=== PATIENT | female | born 1960 | race Caucasian/White ===

== ENCOUNTER 2024-06-05 13:16 | Emergency (ER) | payer MEDICARE, SELFPAY ==
[2024-06-05 13:17] VITALS: BMI 35.4
[2024-06-05 13:53] VITALS: BP 124/79; PULSE 68; RESP 16; TEMP 36.6; O2SAT 95
--- NOTE | 2024-06-05 14:10 | EDNOTE_ITS ---
<Statement entered by Denita Chapin MD - 06/07/24 07:12> As co-signing physician, I was present and available for consult prn. I concur with the plan and care as documented by the midlevel provider. ED Skin Abcess FB-RME/HPI General Chief complaint: Skin/Abscess/Foreign Body Stated complaint: SORE RIGHT ANKLE x 1 MONTH Time Seen by Provider: 06/05/24 13:53 Source: patient Arrival date/time: 06/05/24 13:16 This is a 64-year-old female who presents to the emergency department with complaints of a healing insect/spider bite to her right lower leg. She does report she has had the wound for 1 month was previously treated with cephalexin which she just completed her course last dose yesterday. She has noticed that the wound is taking longer than expected to heal prompting her ED visit today. Also states that her PCP gave her a dose of doxycycline and mupirocin however she has not started that course. Denies fever, chills no difficulty walking or pain. Mode of arrival: ambulatory Limitations: no limitations Related Data Home Medications ?Medication ?Instructions ?Recorded ?Confirmed Albuterol Sulfate/Ipratropium * 2 puff inhalation Q4HR PRN 08/27/16 11/05/23 (COMBIVENT *) Wheezing #0 inhalations hydrocodone 7.5 mg-acetaminophen 1 tab PO BID PRN Pain 01/25/20 11/05/23 750 mg tablet atorvastatin 40 mg tablet 40 mg PO QPM 11/05/23 cetirizine 10 mg capsule (Zyrtec) 10 mg PO QDAY 11/05/23 diazepam 2 mg tablet (Valium) 2 mg PO BID PRN Anxiety 11/05/23 11/05/23 ergocalciferol (vitamin D2) 1,250 1,250 mcg PO QWEEK 0 11/05/23 11/05/23 mcg (50,000 unit) capsule (Vitamin D2) tiotropium bromide 2.5 1 inh inhalation DAILY 11/0411/05/23 mcg/actuation mist for inhalation (Spiriva Respimat) Allergies Allergy/AdvReac Type Severity Reaction Status Date / Time aspirin Allergy Severe FACIAL Verified 06/05/24 13:21 SWELLING latex Allergy Severe Hives Verified 06/05/24 13:21 Sulfa (Sulfonamide Allergy Severe Hives Verified 06/05/24 13:21 Antibiotics) Review of Systems Review of Systems Systems Reviewed: All systems reviewed, normal except as documented Narrative Review of Systems: Gen: No fever, no chills, no weight loss EYES: No discharge, no visual changes, no pain HEENT: No ear pain, no congestion, no sore throat PULM: No shortness of breath, no cough, no congestion CV: No chest pain, no dyspnea on exertion, no palpitations GI: No nausea, no vomiting, no diarrhea, no pain, no constipation : No frequency, no urgency,? no dysuria Musc/skel: No joint pain, no back pain Skin: Positive insect bite right lower leg ED Exam General Limitations: Present no limitations General appearance: Present alert and in no apparent distress Head Head exam: Present atraumatic Eye Eye exam: Present normal appearance, PERRL and EOMI ENT ENT exam: Present normal exam, normal oropharynx and mucous membranes moist Neck Neck exam: Present normal inspection, full ROM and trachea midline Chest Chest inspection: Present normal inspection and symmetric chest wall rise Respiratory Respiratory exam: Present normal lung sounds bilaterally Cardiovascular Cardiovascular exam: Present regular rate, normal rhythm and normal heart sounds Abdominal Exam Abdominal exam: Present soft and normal bowel sounds Extremities Exam Extremities exam: Present normal inspection and full ROM Expanded Lower Extremity Exam Hip/Pelvis exam: Present normal inspection Upper leg exam: Present normal inspection Leg image: 2 1. + Small 1 cm lesion open sore noted to right lateral upper malleolus area no abscess formation wound appears healing no severe erythemic or drainage. Back Exam Back exam: Present normal inspection and full ROM Neurological Exam Neurological exam: Present alert, oriented X3 and CN II-XII intact Psychiatric Psychiatric exam: Present normal affect and normal mood Skin Skin exam: Present warm, dry, intact and normal color Course Quality Measures none Orders Category Date Time Status Wound Care NOW Care 06/05/24 14:10 Active Vital Signs Vital signs: Vital Signs Temperature 97.8 F 06/05/24 13:53 Pulse Rate 68 06/05/24 13:53 Respiratory Rate 16 06/05/24 13:53 Blood Pressure 124/79 06/05/24 13:53 Pulse Oximetry (%) 95 06/05/24 13:53 Oxygen Delivery Method Room Air 06/05/24 13:53 Skin / Abscess / Foreign Body MDM Narrative MDM Narrative:: Patient evaluated for a healing insect bite/cellulitis noted to her right lower leg. Patient has completed his Keflex outpatient currently on Doxy and mupirocin. Patient's wound does not appear to to have severe infection, no abscess formation, wound appears to be healing granulous tissue noted. Advised to complete her Doxy and mupirocin as directed follow-up with her PCP strict ER precautions to return. Patient data External records reviewed:: [facility] previous records Clinical information provided by:: patient Social determinants that could affect healthcare access:: none Patient has the following chronic illnesses:: None How is presenting disease/condition affected by chronic disease/condition?: no chronic disease Evaluation data The following diagnostics were reviewed and interpreted by me:: other (specify) Lab and/or radiology exams considered but not ordered:: No Interpretation Summary: No Medications / Prescriptions Medications or Prescriptions considered but not ordered:: No Medication administrations:: No Consultations Consultation(s) initiated? (list below): No Diagnosis Skin/Abscess Differential Diagnosis: abscess of skin or subcutaneous tissue, cellulitis, eczema and insect bites Most likely diagnosis given after review of the tests above:: Healing cellulitis, insect bite. Admission Indicated Admission indicated?: not indicated Admission Request Was there a request for admission?: No Disposition Plan Disposition Plan: Discharge Discharge Attestation Discharge Attestation: The patient and all family members were given an opportunity to ask questions and understood the discharge instructions. Discharge instructions specifically effects, indications for sooner follow up or return to the emergency department, and the expected course of current diagnosis. Patient condition: Stable Discharge Plan Plan Patient Disposition: HOME (Self Care) Patient condition on transfer: Stable Prescriptions/Referrals Prescriptions/Med Rec: No Action Albuterol Sulfate/Ipratropium * (COMBIVENT *) 4 GM AER.W.ADAP 2 puff Inhalation Q4HR PRN (Reason: Wheezing) Qty: 0 hydrocodone-acetaminophen 7.5-750 mg Tablet 1 tab PO BID PRN (Reason: Pain) atorvastatin 40 mg Tablet 40 mg PO QPM diazepam [Valium] 2 mg Tablet 2 mg PO BID PRN (Reason: Anxiety) ergocalciferol (vitamin D2) [Vitamin D2] 1,250 mcg (50,000 unit) Capsule 1,250 mcg PO QWEEK Zyrtec 10 mg Capsule 10 mg PO QDAY Spiriva Respimat 2.5 mcg/actuation mist 1 inh INHALATION DAILY Patient Comments: INHALE TWO PUFFS BY MOUTH EVERY DAY Problem List Clinical Impression: Nonvenomous spider bite of right lower leg Patient/Caregiver Discharge Instructions Discharge Activity: activity as tolerated Education Materials: ED Insect Sting/Bite, Infected Additional Instructions: Your wound appears to be healing some wounds take longer than others to heal. I advised for you to continue to take and complete your doxycycline. Use the mupirocin for 7 days twice a day until the course is completed Keep area clean and dry. Follow-up with your doctor in 1 week for wound recheck. Return to the emergency department if there is any worsening symptoms or the area of redness is larger as discussed. Print Language: Senegalese Stand Alone Forms: Reshma Award Info., Patient Portal Info Letter PA/TELEGRAPH REPEATER TECHNICIAN Supervising Physician PA/EKTA Supervising Physician: Dr. Dominguez
== END 2024-06-05 14:37 | disposition home or self-care (01) ==
PROVIDERS: Emergency Provider Emergency Medicine
DX: T63.301A Toxic effect of unspecified spider venom, accidental (unintentional), initial encounter (principal)
CPT/HCPCS: 99281

== ENCOUNTER 2024-06-12 20:31 | Emergency (ER) | payer MEDICARE, SELFPAY ==
[2024-06-12 20:32] VITALS: BMI 34.5
[2024-06-12 20:59] VITALS: BP 121/73; PULSE 70; RESP 18; TEMP 36.7; O2SAT 95
--- NOTE | 2024-06-12 21:09 | PD.EDEYE ---
ED Eye Problem RME/HPI General Chief complaint: Eye Problems Stated complaint: LEFT EYE REDNESS Time Seen by Provider: 06/12/24 20:41 Source: patient Arrival date/time: 06/12/24 20:31 64-year-old female presents emergency department complaining of left eye redness, itching, and foreign body sensation that started yesterday. Patient reports bought [id number] eyedrops with no longer having sensation of foreign body but reports is still itchy and red. Patient reports this morning woke up and had yellow crusting and lower eyelid. Patient denies any vision changes. Mode of arrival: ambulatory Limitations: no limitations Related Data Home Medications ?Medication ?Instructions ?Recorded ?Confirmed Albuterol Sulfate/Ipratropium * 2 puff inhalation Q4HR PRN 08/27/16 11/05/23 (COMBIVENT *) Wheezing #0 inhalations hydrocodone 7.5 mg-acetaminophen 1 tab PO BID PRN Pain 01/25/20 11/05/23 750 mg tablet atorvastatin 40 mg tablet 40 mg PO QPM 11/05/23 11/05/23 cetirizine 10 mg capsule (Zyrtec) 10 mg PO QDAY 11/05/23 11/05/23 diazepam 2 mg tablet (Valium) 2 mg PO BID PRN Anxiety 11/05/23 11/05/23 ergocalciferol (vitamin D2) 1,250 1,250 mcg PO QWEEK 11/05/23 11/05/23 mcg (50,000 unit) capsule (Vitamin D2) tiotropium bromide 2.5 1 inh inhalation DAILY 11/05/23 11/05/23 mcg/actuation mist for inhalation (Spiriva Respimat) Previous Rx's ?Medication ?Instructions ?Recorded erythromycin 5 mg/gram (0.5 %) eye 0.5 inch ophthalmic (eye) QID 5 06/12/24 ointment days #3.5 grams Allergies Allergy/AdvReac Type Severity Reaction Status Date / Time aspirin Allergy Severe FACIAL Verified 06/12/24 20:32 SWELLING latex Allergy Severe Hives Verified 06/12/24 20:32 Sulfa (Sulfonamide Allergy Severe Hives Verified 06/12/24 20:32 Antibiotics) Review of Systems Review of Systems Systems Reviewed: All systems reviewed, normal except as documented Constitutional Constitutional: Reports system reviewed and no additional complaints, except as documented, Denies body ache(s), Denies chills and Denies fever(s) Eyes Eyes: Reports system reviewed and no additional complaints, except as documented, Denies change in vision, Reports eye discharge, Reports irritation and Reports itchy eyes ENT Ears, Nose, Mouth, and Throat: Reports system reviewed and no additional complaints, except as documented, Denies disequilibrium, Denies dizziness, Denies sore throat and Denies vertigo Cardiovascular Cardiovascular: Reports system reviewed and no additional complaints, except as documented, Denies chest pain and Denies dyspnea Respiratory Respiratory: Reports system reviewed and no additional complaints, except as documented, Denies chest congestion, Denies cough and Denies dyspnea Gastrointestinal Gastrointestinal: Reports system reviewed and no additional complaints, except as documented, Denies abdominal pain, Denies nausea and Denies vomiting Musculoskeletal Musculoskeletal: Reports system reviewed and no additional complaints, except as documented, Denies abnormal gait and Denies arthralgias Integumentary/Breasts Skin/Breast: Reports system reviewed and no additional complaints, except as documented, Denies erythema, Denies rash and Denies wounds Neurologic Neurologic: Reports system reviewed and no additional complaints, except as documented, Denies abnormal gait, Denies disequilibrium, Denies dizziness and Denies vertigo Allergic/Immunologic Allergic/Immunologic: Reports itchy eyes Past Medical History Past Medical History NEUROLOGIC: Negative Neurological Disorders or Seizures CARDIAC: Positive Cardiac Disorders and Hypercholesterolemia; Negative Congestive Heart Failure RESPIRATORY: Positive Chronic Obstructive Pulmonary Disease (COPD), Asthma and Sleep Apnea GASTROINTESTINAL: Positive Gastrointestinal Disorders, Gastroesophageal Reflux Disease and Obesity; Negative Hepatitis GENITOURINARY: Positive Genitourinary Disorders (RIGHT KIIDNEY HAS CYST); Negative Renal Disease REPRODUCTIVE: Positive Previous Pregnancies (X5) MUSCULOSKELETAL: Positive Musculoskeletal Disorders, Arthritis and Carpal Tunnel Syndrome (RIHGT WRIST AND ELBOW) ENT: Positive Cataracts ENDOCRINE: Negative Endocrine Disorders, Diabetes Mellitus Type 1 or Diabetes Mellitus Type 2 HEMATOLOGIC: Negative Blood Disorders PSYCHO/SOCIAL: Positive Depression and Anxiety OTHER HISTORY: Positive Chicken Pox, Measles and Mumps; Negative Hospitalization, Autoimmune Disease, Shingles, Falls, Blood Transfusions, Blood Transfusion Reaction, Anesthesia Reactions, MRSA or Cancer Family History FAMILY HISTORY: Positive Family Cancer (MOTHER. SISTER); Negative Family Psychiatric Problems, Family Respiratory Disorders, Family Cardiac Disorders, Family Gastrointestinal Problems, Family Surgery or Family Anesthesia Reaction Surgical History SURGICAL: Positive Ear Surgery (LEFT EAR X2), Tonsillectomy, Adenoidectomy and Open Reduction Internal Fixation (bilateral wrists); Negative Cardiac Surgery Social History SMOKING STATUS: Current every day smoker ED Exam General Limitations: Present no limitations General appearance: Present alert and in no apparent distress Head Head exam: Present atraumatic Eye Eye exam: Present normal appearance, PERRL and EOMI Expanded Eye Exam Eyelids: left: swelling eyelids Pupils: Bilateral: regular, round and reactive Sclera/Conjunctival: left: injection and exudate (Yellow discharge) ENT ENT exam: Present normal exam, normal oropharynx and mucous membranes moist Neck Neck exam: Present normal inspection, full ROM and trachea midline Chest Chest inspection: Present normal inspection and symmetric chest wall rise Respiratory Respiratory exam: Present normal lung sounds bilaterally Cardiovascular Cardiovascular exam: Present regular rate, normal rhythm and normal heart sounds Abdominal Exam Abdominal exam: Present soft and normal bowel sounds Extremities Exam Extremities exam: Present normal inspection and full ROM Back Exam Back exam: Present normal inspection and full ROM Neurological Exam Neurological exam: Present alert, oriented X3 and CN II-XII intact Psychiatric Psychiatric exam: Present normal affect and normal mood Skin Skin exam: Present warm, dry, intact and normal color Course Quality Measures none Orders Category Date Time Status Freeman Lamp to Bedside X1 Care 06/12/24 21:10 Completed Erythromycin Op Oint 0.5% Med 06/12/24 21:57 Discontinued 1 gm LEFT EYE X1 ONE Fluorescein Sodium [[id number]] Med 06/12/24 21:10 Discontinued 1 mg RIGHT EYE X1 ONE TETRACAINE Op Anne Marie 0.5% [Pontocaine Op Anne Marie 0.5%] Med 06/12/24 21:10 Discontinued 1 drop LEFT EYE X1 ONE Vital Signs Vital signs: Vital Signs Temperature 98.0 F 06/12/24 20:59 Pulse Rate 70 06/12/24 20:59 Respiratory Rate 18 06/12/24 20:59 Blood Pressure 121/73 06/12/24 20:59 Pulse Oximetry (%) 95 06/12/24 20:59 Oxygen Delivery Method Room Air 06/12/24 20:59 Procedures -ED Freeman Lamp Exam Left eye: Flourescein uptake:: Yes Freeman Lamp Findings: Normal Eye MDM Narrative MDM Narrative:: 64-year-old female presents emergency department complaining of left eye redness, itching, and foreign body sensation that started yesterday. Patient reports bought [id number] eyedrops with no longer having sensation of foreign body but reports is still itchy and red. Patient reports this morning woke up and had yellow crusting and lower eyelid. Patient denies any vision changes. Wood lamp exam no obvious foreign body or corneal abrasion. Left eye sclera injection with yellow drainage observed corner of eyelids. Patient denies any vision changes. Patient likely has bacterial infection due to drainage and possibly from rubbing eye as well. Right eye is within normal limits, no signs of infection or redness. No signs of periorbital cellulitis. Patient reports has pending visit with lamp replacer on Thursday. Patient data External records reviewed:: [facility] previous records Clinical information provided by:: patient Social determinants that could affect healthcare access:: none Patient has the following chronic illnesses:: See chart How is presenting disease/condition affected by chronic disease/condition?: uneffected by Evaluation data The following diagnostics were reviewed and interpreted by me:: other (specify) (N/A) Lab and/or radiology exams considered but not ordered:: N/A Interpretation Summary: N/A Medications / Prescriptions Medications or Prescriptions considered but not ordered:: Ordered Medication administrations:: Medication Administration History Discontinued Medications Erythromycin (Erythromycin Op Oint 0.5% 1 Gm Packet) 1 gm LEFT EYE X1 ONE Stop: 06/12/24 21:58 Last Admin: 06/12/24 22:03 Dose: 1 gm Documented By: EMILI Co-signed By: IVÁN Fluorescein Sodium (Fluorescein Sod 1 Mg Strp) 1 mg RIGHT EYE X1 ONE Stop: 06/12/24 21:11 Last Admin: 06/12/24 22:05 Dose: 1 mg Documented By: EMILI Tetracaine HCl (Tetracaine Pf Op Anne Marie 0.5% 4 Ml Drpette) 1 drop LEFT EYE X1 ONE Stop: 06/12/24 21:11 Last Admin: 06/12/24 22:05 Dose: 1 drop Documented By: EMILI Given Consultations Consultation(s) initiated? (list below): No Diagnosis Eye Problem Differential Diagnosis: corneal abrasion, conjunctivitis, acute iritis, hyphema, periorbital cellulitis, subconjunctival hemorrhage and corneal ulcer Most likely diagnosis given after review of the tests above:: Bacterial conjunctivitis Admission Indicated Admission indicated?: not indicated Admission Request Was there a request for admission?: No Disposition Plan Disposition Plan: Discharge Discharge Attestation Discharge Attestation: The patient and all family members were given an opportunity to ask questions and understood the discharge instructions. Discharge instructions specifically effects, indications for sooner follow up or return to the emergency department, and the expected course of current diagnosis. Patient condition: Stable Discharge Plan Plan Patient Disposition: HOME (Self Care) Disposition Comment: Stable Prescriptions/Referrals Prescriptions/Med Rec: New erythromycin 5 mg/gram (0.5 %) ointment 0.5 inch ophthalmic (eye) QID 5 Days Qty: 3.5 0RF No Action Albuterol Sulfate/Ipratropium * (COMBIVENT *) 4 GM AER.W.ADAP 2 puff Inhalation Q4HR PRN (Reason: Wheezing) Qty: 0 hydrocodone-acetaminophen 7.5-750 mg Tablet 1 tab PO BID PRN (Reason: Pain) atorvastatin 40 mg Tablet 40 mg PO QPM diazepam [Valium] 2 mg Tablet 2 mg PO BID PRN (Reason: Anxiety) ergocalciferol (vitamin D2) [Vitamin D2] 1,250 mcg (50,000 unit) Capsule 1,250 mcg PO QWEEK Zyrtec 10 mg Capsule 10 mg PO QDAY Spiriva Respimat 2.5 mcg/actuation mist 1 inh INHALATION DAILY Patient Comments: INHALE TWO PUFFS BY MOUTH EVERY DAY Problem List Clinical Impression: Bacterial conjunctivitis Patient/Caregiver Discharge Instructions Discharge Activity: activity as tolerated Education Materials: ED Conjunctivitis, Bacterial Additional Instructions: Apply medication as prescribed. Follow-up with lamp replacer on Thursday as discussed. Return to emergency department for any worsening symptoms or as needed. Print Language: Upper Sorbian Stand Alone Forms: Reshma Award Info., Patient Portal Info Letter PA/DISTRIBUTOR SALES CONSULTANT Supervising Physician PA/DISTRIBUTOR SALES CONSULTANT Supervising Physician: Dr. Baca
[2024-06-12] MEDS: Erythromycin Op Oint 0.5% 1 GM PACKET LEFT EYE (22:03)
[2024-06-12] MEDS: FLUORESCEIN SOD 1 MG STRP RIGHT EYE (22:05)
[2024-06-12] MEDS: TETRACAINE PF OP SOL 0.5% 4 ML DRPETTE 1 DROP LEFT EYE (22:05)
== END 2024-06-13 00:17 | disposition home or self-care (01) ==
PROVIDERS: Emergency Provider Emergency Medicine; PCP Family Medicine
DX: H10.89 Other conjunctivitis (principal)
CPT/HCPCS: 99283; A9270

== ENCOUNTER → 2024-06-17 | Outpatient (CLI) | payer MEDICARE, SELFPAY ==
--- NOTE | 2024-06-17 16:43 | XR_ITS ---
Examination: PA lateral chest 2 views TECHNIQUE: Upright PA lateral chest 2 views Exam date and time: June 17, 2024 1656 hours Comparison February 21, 2016 INDICATIONS: History solitary pulmonary nodule FINDINGS: Normal heart size Lungs are clear Mild hyperexpansion Prominent osteopenia 6 mm pulmonary nodule left upper lobe IMPRESSION: No active disease Consider 6 month follow-up CT chest to compare with April 01, 2024 exam which indicated 6 mm pulmonary nodule left upper lobe
[2024-06-17 17:50] LABS: Basophils % (Auto) 1 % (0-2.5); Eosinophils # (Auto) 0.2 Thou/mm3 (0.0-0.5); Eosinophils % (Auto) 3 % (0-10); Hematocrit 41.2 % (36.0-46.0); Hemoglobin 13.7 g/dL (12.0-16.0); Immature Granulocytes % (Auto) 1 % (0-0); Immature Granulocytes Auto 0.04 Thou/mm3 (0.00-0.00); Lymphocytes # (Auto) 1.8 Thou/mm3 (1.0-4.8); Lymphocytes % (Auto) 21 % (10-50); Mean Corpuscular HGB Conc 33.3 g/dl (31.0-37.0); Mean Corpuscular Hemoglobin 29.9 pg (25.0-35.0); Mean Corpuscular Volume 90 fL (80-100); Monocytes # (Auto) 0.6 Thou/mm3 (0.0-0.8); Monocytes % (Auto) 7 % (0-12); Neutrophils # (Auto) 5.7 Thou/mm3 (1.8-7.7); Neutrophils % (Auto) 68 % (37-80); Nucleated Red Blood Cell % 0 /100 WBC (0); Platelet Count 222 Thou/mm3 (140-440); RDW Standard Deviation 47.4 fL (36.4-46.3); Red Blood Count 4.58 Miln/mm3 (4.00-5.20); White Blood Count 8.3 Thou/mm3 (3.6-11.0)
[2024-06-17 18:01] LABS: Glucose Estimated Average 114 mg/dL (80-131); Hemoglobin A1C 5.6 % Hgb (4.8-6.0)
[2024-06-17 18:03] LABS: Alanine Aminotransferase 20 U/L (10-49); Albumin, Serum 4.3 gm/dL (3.4-4.8); Albumin/Globulin Ratio 1.5 (1.2-2.2); Alkaline Phosphatase 93 U/L (46-116); Anion Gap 8 (7-16); Aspartate Amino Transferase 20 U/L (0-34); BUN/Creatinine Ratio 18 Ratio (12-20); Bilirubin,Total 0.3 mg/dL (0.3-1.2); Blood Urea Nitrogen 18 mg/dL (9-23); Calcium 9.4 mg/dL (8.3-10.6); Calcium (Corrected) 9.4 mg/dL (8.5-10.1); Carbon Dioxide 30.1 mMol/L (20.0-31.0); Chloride 104 mMol/L (98-107); Globulin 2.9 gm/dL (2.3-3.5); Glucose 95 mg/dL (74-106); Osmolality,Calculated 285 (275-295); Potassium 4.3 mMol/L (3.4-5.1); Sodium 142 mMol/L (136-145); Total Protein 7.2 gm/dL (5.7-8.2); eGFR > 60 See Note
[2024-06-18 15:18] LABS: Cocci Serology, IgM Negative (Negative)
[2024-06-20 14:55] LABS: Cocci Serology, IgG Negative (Negative)
== END | disposition home or self-care (01) ==
LOC: COPL 14:38
PROVIDERS: PCP Family Medicine; Referring Provider Student in an Organized Health Care Education/Training Program; Visit Provider Radiology Diagnostic Radiology
DX: R91.1 Solitary pulmonary nodule (principal); L08.89 Other specified local infections of the skin and subcutaneous tissue
CPT/HCPCS: 36415; 71046; 80053; 83036; 85025; 86331; 86635

== ENCOUNTER 2024-06-23 16:23 | Emergency (ER) | payer MEDICARE, MEDICAID, SELFPAY ==
[2024-06-23 16:33] VITALS: BP 138/79; PULSE 91; RESP 18; TEMP 37.1; O2SAT 94
[2024-06-23 16:34] VITALS: BMI 34.5
--- NOTE | 2024-06-23 16:59 | XR_ITS ---
Examination: Tibia-Fibula, right , 2 views Technique: Tibia-fibula AP lateral 2 views Date and time of exam: June 23, 2024 1706 hrs. Indications: Redness swelling and pain involving the lower leg this week. Findings: Significant osteopenia No fracture No cortical bone destruction No opaque foreign body Impression: No cortical bone destruction
--- NOTE | 2024-06-23 16:59 | PD.EDRME ---
Rapid Medical Screening Exam [facility] Arrival date/time: 06/23/24 16:23 64-year-old female with a history of hyperlipidemia presents to the emergency room with a chief complaint of a wound to the right tib-fib ankle area that has been going on for the last 2 months. Patient states she was sent over by Dr. Argueta to get a culture of the wound as she has failed 3 different antibiotic treatments. I have greeted and performed a focused initial assessment of this patient. A comprehensive ED assessment and evaluation of the patient, analysis of all test results, and completion of the medical decision making process will be conducted by additional ED providers. Chief Complaint: Wound/Laceration Vital signs: Vital Signs Temperature 98.7 F 06/23/24 16:33 Pulse Rate 91 06/23/24 16:33 Respiratory Rate 18 06/23/24 16:33 Blood Pressure 138/79 H 06/23/24 16:33 Pulse Oximetry (%) 94 L 06/23/24 16:33 Oxygen Delivery Method Room Air 06/23/24 16:33 Vital signs reviewed by provider: Yes
[2024-06-23 18:10] LABS: Basophils # (Auto) 0.1 Thou/mm3 (0.0-0.2); Basophils % (Auto) 1 % (0-2.5); Eosinophils # (Auto) 0.1 Thou/mm3 (0.0-0.5); Eosinophils % (Auto) 1 % (0-10); Hematocrit 39.7 % (36.0-46.0); Hemoglobin 13.1 g/dL (12.0-16.0); Immature Granulocytes % (Auto) 0 % (0-0); Immature Granulocytes Auto 0.03 Thou/mm3 (0.00-0.00); Lymphocytes # (Auto) 1.8 Thou/mm3 (1.0-4.8); Lymphocytes % (Auto) 20 % (10-50); Mean Corpuscular Hemoglobin 29.7 pg (25.0-35.0); Mean Corpuscular Volume 90 fL (80-100); Monocytes # (Auto) 0.6 Thou/mm3 (0.0-0.8); Monocytes % (Auto) 7 % (0-12); Neutrophils # (Auto) 6.5 Thou/mm3 (1.8-7.7); Neutrophils % (Auto) 72 % (37-80); Nucleated Red Blood Cell % 0 /100 WBC (0); Platelet Count 219 Thou/mm3 (140-440); RDW Standard Deviation 47.3 fL (36.4-46.3); Red Blood Count 4.41 Miln/mm3 (4.00-5.20); White Blood Count 9.1 Thou/mm3 (3.6-11.0)
[2024-06-23 18:42] LABS: Sed Rate (ESR) 26 mm/hr (0-30)
[2024-06-23 18:43] LABS: Alanine Aminotransferase 21 U/L (10-49); Albumin, Serum 4.3 gm/dL (3.4-4.8); Albumin/Globulin Ratio 1.4 (1.2-2.2); Alkaline Phosphatase 86 U/L (46-116); Anion Gap 7 (7-16); Aspartate Amino Transferase 23 U/L (0-34); BUN/Creatinine Ratio 19 Ratio (12-20); Bilirubin,Total 0.4 mg/dL (0.3-1.2); Blood Urea Nitrogen 19 mg/dL (9-23); C-Reactive Protein < 0.4 mg/dL (0.0-0.9); Calcium 9.2 mg/dL (8.3-10.6); Calcium (Corrected) 9.2 mg/dL (8.5-10.1); Carbon Dioxide 30.4 mMol/L (20.0-31.0); Chloride 103 mMol/L (98-107); Estimated Creatinine Clearance 58.4 mL/min (>60); Glucose 100 mg/dL (74-106); Osmolality,Calculated 281 (275-295); Potassium 3.9 mMol/L (3.4-5.1); Sodium 140 mMol/L (136-145); Total Protein 7.3 gm/dL (5.7-8.2); eGFR > 60 See Note
[2024-06-23 20:26] VITALS: BP 115/78; PULSE 66; RESP 18; TEMP 36.6; O2SAT 95
--- NOTE | 2024-06-23 20:26 | PD.EDWOUND ---
ED Wound/Laceration-RME/HPI General Chief Complaint: Wound/Laceration Stated Complaint: WOUND ON HER RIGHT ANKLE Time Seen by Provider: 06/23/24 20:40 Arrival date/time: 06/23/24 16:23 Limitations: no limitations RME / HPI RME / HPI narrative: 06/23/24 16:23 64-year-old female with a history of hyperlipidemia presents to the emergency room with a chief complaint of a wound to the right tib-fib ankle area that has been going on for the last 2 months. Patient states she was sent over by Dr. Argueta to get a culture of the wound as she has failed 3 different antibiotic treatments. I have greeted and performed a focused initial assessment of this patient. A comprehensive ED assessment and evaluation of the patient, analysis of all test results, and completion of the medical decision making process will be conducted by additional ED providers. DR. PACE MAIN ED EVALUATION: 64 year old female with past medical history significant for hyperlipidemia and asthma presents to the Emergency Department with complaint of right tib fib ankle area wound that will not heal onset 3 weeks. Symptoms are moderate. She states she has been on antibiotics 3 different times and not getting any better. No fevers, chills, or other symptoms at this time. Related Data Home Medications ?Medication ?Instructions ?Recorded ?Confirmed Albuterol Sulfate/Ipratropium * 2 puff inhalation Q4HR PRN 08/27/16 11/05/23 (COMBIVENT *) Wheezing #0 inhalations hydrocodone 7.5 mg-acetaminophen 1 tab PO BID PRN Pain 01/25/20 11/05/23 750 mg tablet atorvastatin 40 mg tablet 40 mg PO QPM 11/05/23 11/05/23 cetirizine 10 mg capsule (Zyrtec) 10 mg PO QDAY 11/05/23 11/05/23 diazepam 2 mg tablet (Valium) 2 mg PO BID PRN Anxiety 11/05/23 11/05/23 ergocalciferol (vitamin D2) 1,250 1,250 mcg PO QWEEK 11/05/23 11/05/23 mcg (50,000 unit) capsule (Vitamin D2) tiotropium bromide 2.5 1 inh inhalation DAILY 11/05/23 11/05/23 mcg/actuation mist for inhalation (Spiriva Respimat) Allergies Allergy/AdvReac Type Severity Reaction Status Date / Time aspirin Allergy Severe FACIAL Verified 06/23/24 16:28 SWELLING latex Allergy Severe Hives Verified 06/23/24 16:28 Sulfa (Sulfonamide Allergy Severe Hives Verified 06/23/24 16:28 Antibiotics) Review of Systems Review of Systems Systems Reviewed: All systems reviewed, normal except as documented Narrative Review of Systems: GEN: No fever, no chills, no weight loss EYES: No discharge, no visual changes, no pain HEENT: No ear pain, no congestion, no sore throat PULM: No shortness of breath, no cough, no congestion CV: No chest pain, no dyspnea on exertion, no palpitations GI: No nausea, no vomiting, no diarrhea, no pain, no constipation : No frequency, no urgency and no dysuria MUSC/SKEL: No joint pain, no back pain SKIN: No rash. + right tib fib ankle area wound (see HPI) PSYCH: No hallucinations, no depression HEME/LYMPH: No easy bleeding or bruising tendencies NEURO: No weakness, no headache Past Medical History Past Medical History NEUROLOGIC: Negative Neurological Disorders or Seizures CARDIAC: Positive Cardiac Disorders and Hypercholesterolemia; Negative Congestive Heart Failure RESPIRATORY: Positive Chronic Obstructive Pulmonary Disease (COPD), Asthma and Sleep Apnea GASTROINTESTINAL: Positive Gastrointestinal Disorders, Gastroesophageal Reflux Disease and Obesity; Negative Hepatitis GENITOURINARY: Positive Genitourinary Disorders (RIGHT KIIDNEY HAS CYST); Negative Renal Disease REPRODUCTIVE: Positive Previous Pregnancies (X5) MUSCULOSKELETAL: Positive Musculoskeletal Disorders, Arthritis and Carpal Tunnel Syndrome (RIHGT WRIST AND ELBOW) ENT: Positive Cataracts ENDOCRINE: Negative Endocrine Disorders, Diabetes Mellitus Type 1 or Diabetes Mellitus Type 2 HEMATOLOGIC: Negative Blood Disorders PSYCHO/SOCIAL: Positive Depression and Anxiety OTHER HISTORY: Positive Chicken Pox, Measles and Mumps; Negative Hospitalization, Autoimmune Disease, Shingles, Falls, Blood Transfusions, Blood Transfusion Reaction, Anesthesia Reactions, MRSA or Cancer Family History FAMILY HISTORY: Positive Family Cancer (MOTHER. SISTER); Negative Family Psychiatric Problems, Family Respiratory Disorders, Family Cardiac Disorders, Family Gastrointestinal Problems, Family Surgery or Family Anesthesia Reaction Surgical History SURGICAL: Positive Ear Surgery (LEFT EAR X2), Tonsillectomy, Adenoidectomy and Open Reduction Internal Fixation (bilateral wrists); Negative Cardiac Surgery Social History SMOKING STATUS: Light (< 1 pack/day) SUBSTANCE USE: does not use ALCOHOL: Never ED Exam General Limitations: Present no limitations General appearance: Present alert and in no apparent distress Head Head exam: Present atraumatic, normocephalic and normal inspection Eye Eye exam: Present normal appearance, PERRL and EOMI ENT ENT exam: Present normal exam, normal oropharynx and mucous membranes moist Neck Neck exam: Present normal inspection, full ROM and trachea midline Chest Chest inspection: Present normal inspection and symmetric chest wall rise Respiratory Respiratory exam: Present normal lung sounds bilaterally Cardiovascular Cardiovascular exam: Present regular rate, normal rhythm and normal heart sounds Abdominal Exam Abdominal exam: Present soft and normal bowel sounds Extremities Exam Extremities exam: Present normal inspection and full ROM Back Exam Back exam: Present normal inspection and full ROM Neurological Exam Neurological exam: Present alert, oriented X3 and CN II-XII intact Psychiatric Psychiatric exam: Present normal affect and normal mood Skin Skin exam: Present warm, dry, normal color and other (chronic right tib fib ankle area wound) Course Quality Measures none Orders Category Date Time Status XR tibia fibula RT 2V Stat Exams 06/23/24 16:59 Completed CBC Stat Lab 06/23/24 17:40 Completed CMP [Comprehensive Metabolic Panel] Stat Lab 06/23/24 17:40 Completed CRP [C-Reactive Protein] Stat Lab 06/23/24 17:40 Completed ESR [Sed Rate (ESR)] Stat Lab 06/23/24 17:40 Completed Clindamycin [Cleocin] Med 06/23/24 20:48 Discontinued 300 mg PO X1 ONE Vital Signs Vital signs: Vital Signs Temperature 98.7 F 06/23/24 16:33 Pulse Rate 91 06/23/24 16:33 Respiratory Rate 18 06/23/24 16:33 Blood Pressure 138/79 H 06/23/24 16:33 Pulse Oximetry (%) 94 L 06/23/24 16:33 Oxygen Delivery Method Room Air 06/23/24 16:33 Procedures -ED Smoking Cessation Time Spent Discussing Smoking Cessation w/Patient (min): 3 Patient Acknowledges Need for Cessation: Yes Additional Comments: The patient was counseled as to the multiple risks to their health from continued use of tobacco products. It was explained that continuing to smoke may lead to multiple short and supervisor long goods negative health consequences, including but not limited to mouth/esophageal/lung cancer, COPD, and heart disease. The patient states they understand these risks, and also understand the options and resources available to them to help them stop smoking. Nicotine replacement therapy, local hotlines, and local resources were discussed as viable options for helping them stop their tobacco use. The total time spent counseling the patient regarding tobacco cessation was 3 minutes. Wound / Laceration MDM Narrative MDM Narrative:: IMyrna, am scribing for and in the presence of Dr. Pace. Patient data External records reviewed:: [facility] previous records (Reviewed last ED visit dated 06/12/24 discharged with the following: Bacterial conjunctivitis) Clinical information provided by:: patient Social determinants that could affect healthcare access:: other (specify) (current smoker) Patient has the following chronic illnesses:: hyperlipidemia and asthma How is presenting disease/condition affected by chronic disease/condition?: uneffected by Evaluation data The following diagnostics were reviewed and interpreted by me:: lab results and radiology exam(s) Lab and/or radiology exams considered but not ordered:: none Interpretation Summary: Procedure(s): XR tibia fibula RT 2V Accession Number(s): [id number] cc: Estuardo Lizama; Rylan Lopez MD; Trino Argueta MD~ Examination: Tibia-Fibula, right , 2 views Technique: Tibia-fibula AP lateral 2 views Date and time of exam: June 23, 2024 1706 hrs. Indications: Redness swelling and pain involving the lower leg this week. Findings: Significant osteopenia No fracture No cortical bone destruction No opaque foreign body Impression: No cortical bone destruction Dictated By: Rylan Lopez MD Medications / Prescriptions Medications or Prescriptions considered but not ordered:: none Medication administrations:: Medication Administration History Discontinued Medications Clindamycin HCl (Clindamycin 150 Mg Capsule) 300 mg PO X1 ONE Stop: 06/23/24 20:49 Last Admin: 06/23/24 21:00 Dose: Not Given Documented By: SE Non-Admin Reason: Cancelled by Provider see above Consultations Consultation(s) initiated? (list below): No Diagnosis Wound Differential Diagnosis: abscess and other (chronic wound of extremity, cellulitis) Most likely diagnosis given after review of the tests above:: chronic wound of extremity Admission Indicated Admission indicated?: not indicated Admission Request Was there a request for admission?: No Disposition Plan Disposition Plan: Discharge Discharge Attestation Discharge Attestation: The patient and all family members were given an opportunity to ask questions and understood the discharge instructions. Discharge instructions specifically effects, indications for sooner follow up or return to the emergency department, and the expected course of current diagnosis. Patient condition: Stable Discharge Plan Plan Patient Disposition: HOME (Self Care) Patient condition on transfer: Stable Prescriptions/Referrals Prescriptions/Med Rec: No Action Albuterol Sulfate/Ipratropium * (COMBIVENT *) 4 GM AER.W.ADAP 2 puff Inhalation Q4HR PRN (Reason: Wheezing) Qty: 0 hydrocodone-acetaminophen 7.5-750 mg Tablet 1 tab PO BID PRN (Reason: Pain) atorvastatin 40 mg Tablet 40 mg PO QPM diazepam [Valium] 2 mg Tablet 2 mg PO BID PRN (Reason: Anxiety) ergocalciferol (vitamin D2) [Vitamin D2] 1,250 mcg (50,000 unit) Capsule 1,250 mcg PO QWEEK Zyrtec 10 mg Capsule 10 mg PO QDAY Spiriva Respimat 2.5 mcg/actuation mist 1 inh INHALATION DAILY Patient Comments: INHALE TWO PUFFS BY MOUTH EVERY DAY Referrals: Trino Argueta MD [Primary Care Provider] - In 1 week Problem List Clinical Impression: Chronic wound of extremity Patient/Caregiver Discharge Instructions Education Materials: Discharge Instructions Wound ... Additional Instructions: Today your x-ray does not show that any abnormality of the bone. Please let your primary care physician know that a culture of the area has been sent and it needs to be checked in the next 72 hours. Please follow-up with your doctors appointment on Thursday. Return to the emergency department if you have any worsening symptoms, fever, any pain in the area, or any other concerns. Print Language: Panamanian Stand Alone Forms: Reshma Award Info., Patient Portal Info Letter
== END 2024-06-23 21:08 | disposition home or self-care (01) ==
PROVIDERS: Nurse Practitioner Family; Emergency Provider Emergency Medicine; PCP Family Medicine
DX: S91.001A Unspecified open wound, right ankle, initial encounter (principal); X58.XXXA Exposure to other specified factors, initial encounter; E78.5 Hyperlipidemia, unspecified; J45.909 Unspecified asthma, uncomplicated
CPT/HCPCS: 36415; 73590; 80053; 85025; 85652; 86140; 87070; 87205; 99283

== ENCOUNTER → 2024-06-24 | Outpatient (CLI) | payer MEDICARE, MEDICAID, SELFPAY ==
[2024-06-24 12:03] LABS: Basophils % (Auto) 1 % (0-2.5); Eosinophils # (Auto) 0.3 Thou/mm3 (0.0-0.5); Eosinophils % (Auto) 4 % (0-10); Hematocrit 39.4 % (36.0-46.0); Hemoglobin 12.7 g/dL (12.0-16.0); Immature Granulocytes % (Auto) 0 % (0-0); Immature Granulocytes Auto 0.02 Thou/mm3 (0.00-0.00); Lymphocytes # (Auto) 1.6 Thou/mm3 (1.0-4.8); Lymphocytes % (Auto) 26 % (10-50); Mean Corpuscular HGB Conc 32.2 g/dl (31.0-37.0); Mean Corpuscular Hemoglobin 29.7 pg (25.0-35.0); Mean Corpuscular Volume 92 fL (80-100); Monocytes # (Auto) 0.6 Thou/mm3 (0.0-0.8); Monocytes % (Auto) 10 % (0-12); Neutrophils # (Auto) 3.6 Thou/mm3 (1.8-7.7); Neutrophils % (Auto) 60 % (37-80); Nucleated Red Blood Cell % 0 /100 WBC (0); Platelet Count 207 Thou/mm3 (140-440); RDW Standard Deviation 49.1 fL (36.4-46.3); Red Blood Count 4.27 Miln/mm3 (4.00-5.20); White Blood Count 6.1 Thou/mm3 (3.6-11.0)
[2024-06-24 12:25] LABS: Alanine Aminotransferase 18 U/L (10-49); Albumin, Serum 4.1 gm/dL (3.4-4.8); Albumin/Globulin Ratio 1.6 (1.2-2.2); Alkaline Phosphatase 81 U/L (46-116); Anion Gap 6 (7-16); Aspartate Amino Transferase 18 U/L (0-34); BUN/Creatinine Ratio 17 Ratio (12-20); Bilirubin,Total 0.3 mg/dL (0.3-1.2); Blood Urea Nitrogen 17 mg/dL (9-23); Chloride 106 mMol/L (98-107); Globulin 2.6 gm/dL (2.3-3.5); Glucose 103 mg/dL (74-106); Osmolality,Calculated 288 (275-295); Potassium 3.9 mMol/L (3.4-5.1); Sodium 144 mMol/L (136-145); Total Protein 6.7 gm/dL (5.7-8.2); eGFR > 60 See Note
== END | disposition home or self-care (01) ==
PROVIDERS: Orthopaedic Surgery; PCP Family Medicine; Referring Provider Internal Medicine Nephrology; Visit Provider Internal Medicine Nephrology
DX: I12.9 Hypertensive chronic kidney disease with stage 1 through stage 4 chronic kidney disease, or unspecified chronic kidney disease (principal); E78.5 Hyperlipidemia, unspecified; D64.9 Anemia, unspecified
CPT/HCPCS: 36415; 80053; 85025

== ENCOUNTER → 2024-06-30 | Outpatient (CLI) | payer MEDICARE, MEDICAID, SELFPAY | END | disposition home or self-care (01) | PROVIDERS: PCP Family Medicine; Referring Provider Family Medicine; Visit Provider Student in an Organized Health Care Education/Training Program | DX: L97.812 Non-pressure chronic ulcer of other part of right lower leg with fat layer exposed (principal); S81.801A Unspecified open wound, right lower leg, initial encounter; W57.XXXA Bitten or stung by nonvenomous insect and other nonvenomous arthropods, initial encounter; J45.909 Unspecified asthma, uncomplicated; F41.9 Anxiety disorder, unspecified; Z72.0 Tobacco use; N28.1 Cyst of kidney, acquired; M19.90 Unspecified osteoarthritis, unspecified site; G47.33 Obstructive sleep apnea (adult) (pediatric); Z98.890 Other specified postprocedural states | CPT/HCPCS: 29581; 99213; A9270; G0463 ==

== ENCOUNTER → 2024-07-12 | Outpatient (CLI) | payer MEDICARE, SELFPAY | END | disposition home or self-care (01) | PROVIDERS: PCP Family Medicine; Referring Provider Family Medicine; Visit Provider Student in an Organized Health Care Education/Training Program | DX: L02.415 Cutaneous abscess of right lower limb (principal); L97.812 Non-pressure chronic ulcer of other part of right lower leg with fat layer exposed; S81.801A Unspecified open wound, right lower leg, initial encounter; W57.XXXA Bitten or stung by nonvenomous insect and other nonvenomous arthropods, initial encounter; J45.909 Unspecified asthma, uncomplicated; F41.9 Anxiety disorder, unspecified; Z72.0 Tobacco use; N28.1 Cyst of kidney, acquired; M19.90 Unspecified osteoarthritis, unspecified site; G47.33 Obstructive sleep apnea (adult) (pediatric); Z98.890 Other specified postprocedural states | CPT/HCPCS: 97597; A9270 ==

== ENCOUNTER → 2024-07-26 | Outpatient (CLI) | payer MEDICARE, SELFPAY | END | disposition home or self-care (01) | LOC: SWHD 13:54 | PROVIDERS: PCP Family Medicine; Referring Provider Family Medicine; Visit Provider Student in an Organized Health Care Education/Training Program | DX: L02.415 Cutaneous abscess of right lower limb (principal); S81.851A Open bite, right lower leg, initial encounter; W57.XXXA Bitten or stung by nonvenomous insect and other nonvenomous arthropods, initial encounter; J45.909 Unspecified asthma, uncomplicated; F41.9 Anxiety disorder, unspecified; Z72.0 Tobacco use; N28.1 Cyst of kidney, acquired; M19.90 Unspecified osteoarthritis, unspecified site; G47.33 Obstructive sleep apnea (adult) (pediatric); Z98.890 Other specified postprocedural states | CPT/HCPCS: 97597; A9270 ==

== ENCOUNTER → 2024-08-02 | Outpatient (CLI) | payer MEDICARE, SELFPAY | END | disposition home or self-care (01) | LOC: SWHD 14:39 | PROVIDERS: PCP Family Medicine; Referring Provider Family Medicine; Visit Provider Student in an Organized Health Care Education/Training Program | DX: L02.415 Cutaneous abscess of right lower limb (principal); S81.851A Open bite, right lower leg, initial encounter; W57.XXXA Bitten or stung by nonvenomous insect and other nonvenomous arthropods, initial encounter; J45.909 Unspecified asthma, uncomplicated; F41.9 Anxiety disorder, unspecified; Z72.0 Tobacco use; N28.1 Cyst of kidney, acquired; M19.90 Unspecified osteoarthritis, unspecified site; G47.33 Obstructive sleep apnea (adult) (pediatric); Z98.890 Other specified postprocedural states | CPT/HCPCS: 97597; A9270 ==

== ENCOUNTER → 2024-08-09 | Outpatient (CLI) | payer MEDICARE, SELFPAY | END | disposition home or self-care (01) | LOC: SWHD 14:08 | PROVIDERS: PCP Family Medicine; Referring Provider Family Medicine; Visit Provider Student in an Organized Health Care Education/Training Program | DX: L02.415 Cutaneous abscess of right lower limb (principal); S81.851A Open bite, right lower leg, initial encounter; W57.XXXA Bitten or stung by nonvenomous insect and other nonvenomous arthropods, initial encounter; J45.909 Unspecified asthma, uncomplicated; F41.9 Anxiety disorder, unspecified; M19.90 Unspecified osteoarthritis, unspecified site; G47.33 Obstructive sleep apnea (adult) (pediatric); N28.1 Cyst of kidney, acquired; Z98.890 Other specified postprocedural states | CPT/HCPCS: 11106; A9270 ==

== ENCOUNTER → 2024-08-23 | Outpatient (CLI) | payer MEDICARE, SELFPAY | END | disposition home or self-care (01) | LOC: SWHD 15:09 | PROVIDERS: PCP Family Medicine; Referring Provider Family Medicine; Visit Provider Student in an Organized Health Care Education/Training Program | DX: L02.415 Cutaneous abscess of right lower limb (principal); S81.851A Open bite, right lower leg, initial encounter; W57.XXXA Bitten or stung by nonvenomous insect and other nonvenomous arthropods, initial encounter; J45.909 Unspecified asthma, uncomplicated; F41.9 Anxiety disorder, unspecified; M19.90 Unspecified osteoarthritis, unspecified site; G47.33 Obstructive sleep apnea (adult) (pediatric); N28.1 Cyst of kidney, acquired; Z98.890 Other specified postprocedural states | CPT/HCPCS: 17250; A9270 ==

== ENCOUNTER → 2024-08-30 | Outpatient (CLI) | payer MEDICARE, SELFPAY | END | disposition home or self-care (01) | LOC: SWHD 15:00 | PROVIDERS: PCP Family Medicine; Referring Provider Family Medicine; Visit Provider Student in an Organized Health Care Education/Training Program | DX: L02.415 Cutaneous abscess of right lower limb (principal); S81.851A Open bite, right lower leg, initial encounter; W57.XXXA Bitten or stung by nonvenomous insect and other nonvenomous arthropods, initial encounter; J45.909 Unspecified asthma, uncomplicated; F41.9 Anxiety disorder, unspecified; M19.90 Unspecified osteoarthritis, unspecified site; G47.33 Obstructive sleep apnea (adult) (pediatric); N28.1 Cyst of kidney, acquired; Z98.890 Other specified postprocedural states | CPT/HCPCS: 99213; G0463 ==

== ENCOUNTER → 2024-09-29 | Outpatient (CLI) | payer MEDICARE, SELFPAY | END | disposition home or self-care (01) | LOC: SWHD 10:54 | PROVIDERS: PCP Family Medicine; Referring Provider Family Medicine; Visit Provider Student in an Organized Health Care Education/Training Program | DX: L02.415 Cutaneous abscess of right lower limb (principal); S81.851A Open bite, right lower leg, initial encounter; W57.XXXA Bitten or stung by nonvenomous insect and other nonvenomous arthropods, initial encounter; J45.909 Unspecified asthma, uncomplicated; F41.9 Anxiety disorder, unspecified; M19.90 Unspecified osteoarthritis, unspecified site; G47.33 Obstructive sleep apnea (adult) (pediatric); Z98.890 Other specified postprocedural states | CPT/HCPCS: 99212; G0463 ==

== ENCOUNTER 2025-03-23 18:36 | Emergency (ER) | payer MEDICARE, SELFPAY ==
[2025-03-23 19:19] VITALS: BP 145/88; PULSE 76; RESP 20; TEMP 36.9; O2SAT 95
--- NOTE | 2025-03-23 20:21 | XR_ITS ---
Examination: Ribs, right, with PA chest, 5 views Technique: Chest PA, RIBS AP, RPO, LPO, AP coned lower ribs 5 views Exam date and time: March 23, 2025, 2019 hours INDICATIONS: Patient fell today with injury to the right chest, right chest pain Findings: Acute impacted fracture right humeral neck No pneumothorax Normal heart size Prominent osteopenia No acute rib fractures IMPRESSION: No pneumothorax pulmonary contusion or hemothorax Acute impacted fracture right humeral neck No acute rib fractures
--- NOTE | 2025-03-23 20:21 | XR_ITS ---
Examination: Humerus 2 views right Technique: Humerus, AP lateral 2 views Date and time of exam: March 23, 2025, 2019 hours INDICATION: Patient fell today with injury to the right arm, right arm pain. FINDINGS: Acute impacted fracture right humeral neck No definite shoulder dislocation Shaft of the humerus intact IMPRESSION: Acute impacted fracture right humeral neck
--- NOTE | 2025-03-23 20:22 | PD.EDFALL ---
ED Fall Injury RME/HPI General Chief Complaint: Fall Stated Complaint: FALL, INJURY R) ARM, R) SIDE Time Seen by Provider: 03/23/25 20:16 Arrival date/time: 03/23/25 18:36 65-year-old female patient with significant history of chronic pain, came in for elevation regarding ground-level fall. Patient sustained a ground-level fall stable curb, landing on her right arm resulting in the pain to the right lateral chest wall, right arm, severity moderate. Patient denies any neck pain no headache no head injury. Patient is not taking any blood thinner. Incident happened about 30 minutes prior to ER visit. Related Data Home Medications ?Medication ?Instructions ?Recorded ?Confirmed Albuterol Sulfate/Ipratropium * 2 puff inhalation Q4HR PRN 08/27/16 11/05/23 (COMBIVENT *) Wheezing #0 inhalations hydrocodone 7.5 mg-acetaminophen 1 tab PO BID PRN Pain 01/25/20 11/05/23 750 mg tablet atorvastatin 40 mg tablet 40 mg PO QPM 11/05/23 11/05/23 cetirizine 10 mg capsule (Zyrtec) 10 mg PO QDAY 11/05/23 11/05/23 diazepam 2 mg tablet (Valium) 2 mg PO BID PRN Anxiety 11/05/23 11/05/23 ergocalciferol (vitamin D2) 1,250 1,250 mcg PO QWEEK 11/05/23 11/05/23 mcg (50,000 unit) capsule (Vitamin D2) tiotropium bromide 2.5 1 inh inhalation DAILY 11/05/23 11/05/23 mcg/actuation mist for inhalation (Spiriva Respimat) Allergies Allergy/AdvReac Type Severity Reaction Status Date / Time aspirin Allergy Severe FACIAL Verified 03/23/25 18:40 SWELLING latex Allergy Severe Hives Verified 03/23/25 18:40 Sulfa (Sulfonamide Allergy Severe Hives Verified 03/23/25 18:40 Antibiotics) Review of Systems Review of Systems Narrative Review of Systems: Review of system reviewed and within normal limits except mentioned in HPI ED Exam Narrative Physical exam: VITAL SIGNS: Reviewed. GENERAL APPEARANCE: Alert and interactive, follows commands, no acute distress, HEAD AND FACE: Non-traumatic. ENT: PERRL, pink conjunctivitis, eyelid no trauma, Mucous membrane moist. NECK: Supple, nontender, no nuchal rigidity. CHEST: Right lateral chest wall tenderness, no crepitus, no paradoxical movement, no retractions. LUNGS: Clear, well ventilated, symmetric, no rales, no wheezing, no ronchi, no stridor, good breath sounds bilaterally. HEART: Regular rate, regular rhythm, no murmur, no gallops. ABDOMEN: Soft, positive bowel sounds, nondistended, no guarding, nontender, no rebound, no masses, RECTAL: Deferred. GENITAL: Deferred. NEUROLOGICAL: Gross motor function intact sensory function intact, Appropriate for age. MUSCULOSKELETAL: low back nontender, full range of motion. EXTREMITIES: N right proximal arm tenderness, with mild swelling, limitation of range of motion, distal neurovascular status intact SKIN: Color pink, dry, no rash, no lacerations, no abrasions, no contusions. LYMPHATICS: Deferred. Course Quality Measures none Orders Category Date Time Status XR humerus RT min 2V Stat Exams 03/23/25 20:21 Completed XR ribs RT min 3V w CXR1V Stat Exams 03/23/25 20:21 Completed HYDROcodone/APAP 10/325 [[place] 10/325] Med 03/23/25 20:21 Discontinued 1 tab PO X1 ONE Vital Signs Vital signs: Vital Signs Temperature 98.4 F 03/23/25 19:19 Pulse Rate 76 03/23/25 19:19 Respiratory Rate 20 03/23/25 19:19 Blood Pressure 145/88 H 03/23/25 19:19 Pulse Oximetry (%) 95 03/23/25 19:19 Oxygen Delivery Method Room Air 03/23/25 19:19 Fall MDM Narrative MDM Narrative:: 65-year-old female patient with significant history of chronic pain, came in for elevation regarding ground-level fall. Patient sustained a ground-level fall stable curb, landing on her right arm resulting in the pain to the right lateral chest wall, right arm, severity moderate. Patient denies any neck pain no headache no head injury. Patient is not taking any blood thinner. Incident happened about 30 minutes prior to ER visit. X-ray of the right arm showed impacted fracture of the humeral neck no dislocation noted. X-ray of the right rib with 1 view chest came back unremarkable. Results discussed with the patient. Patient was placed in an arm sling. Patient was advised to follow-up with PCP and for referral to orthopedic surgeon next week for definitive management of her fracture. Stable for discharge home Patient data External records reviewed:: None Clinical information provided by:: patient Social determinants that could affect healthcare access:: none Patient has the following chronic illnesses:: Chronic pain syndrome How is presenting disease/condition affected by chronic disease/condition?: exacerbated by Evaluation data The following diagnostics were reviewed and interpreted by me:: radiology exam(s) Lab and/or radiology exams considered but not ordered:: None see above Interpretation Summary: See above Medications / Prescriptions Medications or Prescriptions considered but not ordered:: None Medication administrations:: Medication Administration History Discontinued Medications Hydrocodone Bitart/Acetaminophen (Hydrocodone/Apap 10/325 Tab) 1 tab PO X1 ONE Stop: 03/23/25 20:22 Last Admin: 03/23/25 21:13 Dose: 1 tab Documented By: SANDEE Valdez Consultations Consultation(s) initiated? (list below): No Diagnosis Fall Differential Diagnosis: other (Chest wall contusion, rib fracture, pneumothorax, shoulder dislocation humeral neck fracture) Most likely diagnosis given after review of the tests above:: fall, chest wall contusion, humeral neck fracture Admission Indicated Admission indicated?: not indicated Explain why admission is indicated or not indicated:: Stable Admission Request Was there a request for admission?: No Disposition Plan Disposition Plan: Discharge Discharge Attestation Discharge Attestation: The patient and all family members were given an opportunity to ask questions and understood the discharge instructions. Discharge instructions specifically effects, indications for sooner follow up or return to the emergency department, and the expected course of current diagnosis. Patient condition: Stable Discharge Plan Plan Patient Disposition: HOME (Self Care) Discharge Disposition comment: stable Prescriptions/Referrals Prescriptions/Med Rec: No Action Albuterol Sulfate/Ipratropium * (COMBIVENT *) 4 GM AER.W.ADAP 2 puff Inhalation Q4HR PRN (Reason: Wheezing) Qty: 0 hydrocodone-acetaminophen 7.5-750 mg Tablet 1 tab PO BID PRN (Reason: Pain) atorvastatin 40 mg Tablet 40 mg PO QPM diazepam [Valium] 2 mg Tablet 2 mg PO BID PRN (Reason: Anxiety) ergocalciferol (vitamin D2) [Vitamin D2] 1,250 mcg (50,000 unit) Capsule 1,250 mcg PO QWEEK Zyrtec 10 mg Capsule 10 mg PO QDAY Spiriva Respimat 2.5 mcg/actuation mist 1 inh INHALATION DAILY Patient Comments: INHALE TWO PUFFS BY MOUTH EVERY DAY Referrals: Justin (PCP),MD Cuate [Primary Care Provider, Family Practice] - In 1 week Problem List Clinical Impression: Fall, Fracture of neck of humerus, Chest wall contusion Patient/Caregiver Discharge Instructions Discharge Activity: activity as tolerated Education Materials: How Bones Heal Additional Instructions: Thank you for the opportunity for serving you today. You are stable for discharged . You are advised to: Follow-up with your PCP in 1 to 2 days and ask for referral to orthopedic surgeon Return to ED for worsening of symptoms Increase oral fluids Take medication as prescribed Take your on pain medication as needed for pain Wear your arm sling for the next 4 weeks. Print Language: Iraqi Stand Alone Forms: Reshma Award Info., Patient Portal Info Letter PA/EKTA Supervising Physician PA/EKTA Supervising Physician: MD Wendy
[2025-03-23 22:18] VITALS: BP 172/97; PULSE 77; RESP 18; TEMP 37.1; O2SAT 95
[2025-03-23] MEDS: MORPHINE SULF INJ 4 MG/ML VIAL IM (22:31)
== END 2025-03-23 22:53 | disposition home or self-care (01) ==
PROVIDERS: Emergency Provider Emergency Medicine; PCP Family Medicine
DX: S42.211A Unspecified displaced fracture of surgical neck of right humerus, initial encounter for closed fracture (principal); S20.211A Contusion of right front wall of thorax, initial encounter; W18.30XA Fall on same level, unspecified, initial encounter
CPT/HCPCS: 71101; 73060; 96372; 99283; J2270; A9270

== ENCOUNTER → 2025-03-28 | Outpatient (CLI) | payer SELFPAY ==
--- NOTE | 2025-03-28 12:40 | XR_ITS ---
Examination: Bone densitometry Date and time of exam: March 28, 2025, 1154 hours INDICATIONS: Postmenopausal, post menopausal fracture humerus left hip smoking history, family history, sister osteoporosis, personal history osteoporosis Technique: Lumbar spine and hip total bone mineralization values of an calculated. Peak reference and age match control results have been displayed. Findings: Lumbar spine total bone mineralization is 0.728 gm/cm2. This is 2.9 standard deviations below peak reference. This is 1.0 standard deviations below age-matched controls. Hip total bone mineralization is 0.763 gm/cm2 This is 1.5 standard deviations below peak reference. This is 0.1 standard deviations below age-matched controls Impression: There is osteoporosis based on lumbar spine measurements. There is osteopenia based on hip measurements Lumbar mineralization is increased 0.4% compared with November 28, 2022 Hip mineralization is decreased 7.0% compared with November 28, 2022
== END | disposition home or self-care (01) ==
PROVIDERS: PCP Family Medicine; Referring Provider Family Medicine; Visit Provider Family Medicine
DX: M81.0 Age-related osteoporosis without current pathological fracture (principal); M85.89 Other specified disorders of bone density and structure, multiple sites
CPT/HCPCS: 77080

== ENCOUNTER → 2025-04-21 | Outpatient (CLI) | payer MEDICARE, MEDICAID, SELFPAY ==
--- NOTE | 2025-04-21 | XR_ITS ---
Examination: Shoulder, right, 3 views Technique: Shoulder AP internal rotation, AP external rotation, Y view shoulder, 3 views Exam date and time : April 21, 2025, 1411 hours INDICATION: Patient fell last month with injury to the shoulder, shoulder pain FINDINGS: Stable impacted fracture humeral neck compared with March 23, 2025 Early healing Severe osteopenia Calcific tendinitis Moderate osteoarthritis glenohumeral joint IMPRESSION: Early healing impacted fracture humeral neck with stable and satisfactory alignment
== END | disposition home or self-care (01) ==
PROVIDERS: PCP Family Medicine; Referring Provider Family Medicine; Visit Provider Family Medicine
DX: S42.211A Unspecified displaced fracture of surgical neck of right humerus, initial encounter for closed fracture (principal); W19.XXXA Unspecified fall, initial encounter
CPT/HCPCS: 73030